=== PATIENT | female | born 1930 | race Caucasian/White ===

== ENCOUNTER 2018-12-07 12:46 | Emergency (ER) | payer OTHER ==
[~2018-12-07] VITALS: Ht 152.4 cm; Wt 45.4 kg
[2018-12-07 13:06] VITALS: BP 135/85
--- NOTE | 2018-12-07 13:10 | NUR ---
BIB GRANDDAUGHTER. PT AAO X4 C/O CANKER SORE THAT COMES AND GOES X 1 WEEK. PT STATES 10/10 PAIN. PT TOOK ADVIL LAST NIGHT WITH MILD RELIEF. PT DENIES FEVER, N/V. HOB UP. BED SIDE RAILS UP X1. ON LOW BED POSITION, LOCKED. ER MADE AWARE OF PT STATUS.
[2018-12-07] MEDS ORDERED: CLINDAMYCIN 600 MG/4 ML VIAL IM ONE (13:30)
--- NOTE | 2018-12-07 13:30 | NUR ---
DR DANG AT BEDSIDE FOR PT EVAL
--- NOTE | 2018-12-07 14:00 | NUR ---
IM MEDICATION GIVEN ORDERED. PT TOLERATED WELL.
--- NOTE | 2018-12-07 14:15 | NUR ---
PT ASLEEP. EASILY AROUSABLE BY NAME. FULL CLEAR SPEECH. NO ADVERSE REACTION TO MEDICATIONS. VSS. GRAND DAUGHTER AT BEDSIDE.
[2018-12-07 14:18] VITALS: BP 103/67
--- NOTE | 2018-12-07 14:18 | NUR ---
Patient discharged with v/s stable. Written and verbal after care instructions given and explained. Patient alert, oriented and verbalized understanding of instructions. Wheel Chair Assisted with by caregiver. All questions addressed prior to discharge. ID band removed. Patient advised to follow up with PMD. Rx of Flagyl, Kenalog 0.1% given. Patient educated on indication of medication including possible reaction and side effects. Opportunity to ask questions provided and answered.
== END 2018-12-07 14:18 | disposition home or self-care (01) ==
LOC: MED 12:46
DX: K12.0 Recurrent oral aphthae (principal)
CPT/HCPCS: 96372; 99283; J3490

== ENCOUNTER 2019-11-30 11:00 | Inpatient (IN) | payer OTHER, SELFPAY ==
[~2019-11-30] VITALS: Ht 149.9 cm; Wt 72.6 kg
--- NOTE | 2019-11-30 11:00 | NUR ---
PT WHEELCHAIRED TO ER BED 07
[2019-11-30] MEDS ORDERED: NACL 0.9% 500 ML IV SCH (11:01)
[2019-11-30 11:04] VITALS: BP 141/60
[2019-11-30] MEDS ORDERED: ONDANSETRON 4 MG/2 ML VIAL IVP ONE (11:05)
--- NOTE | 2019-11-30 11:10 | NUR ---
SEED COLLECTOR AT BEDSIDE
--- NOTE | 2019-11-30 11:13 | NUR ---
DR. TITUS EVALUATING PT AT BEDSIDE
[2019-11-30] MEDS ORDERED: MORPHINE SULFATE 2 MG/ML SYR IVP ONE (11:15)
[2019-11-30 11:34] LABS: PROTHROMBIN TIME 10.4 secs (10.8-13.4)
--- NOTE | 2019-11-30 11:34 | NUR ---
89 Y/O FEMALE BIB DAUGHTER WITH C/O VOMITING/ABD PAIN/ DIARRHEA SINCE EARLY THIS AM. PTS DAUGHTER REPORTS ABOUT 10 EPISODES OF EMESIS + DIARRHEA. PT HAS DEMENTIA, GCS 13. CAP REFILL <3. DENIES SOB/CP/COUGH/FEVER. ABD SOFT/NON DISTENDED. BOWEL SOUNDS NORMOACTIVE IN ALL QUADRANTS. LUNG SOUNDS CLEAR BILAT. BILAT LOWER PITTING EDEMA +3 WITH MESTICULAR LESIONS. SKIN IN TACT. PMH: DM2, HTN, PVD MEDS: INSULIN, PLAVIX, GABAPENTIN NKA
[2019-11-30 11:35] LABS: BILIRUBIN,URINE NEGATIVE (NEGATIVE); BLOOD, URINE 1+ (NEGATIVE); COLOR,URINE YELLOW (YELLOW); LEUKOCYTE ESTERASE ,URINE NEGATIVE (NEGATIVE); NITRITE, URINE NEGATIVE (NEGATIVE); PH,URINE 5.5 (5.0-9.0); UGLUCOSE NEGATIVE (NEGATIVE)
[2019-11-30 11:35] LABS: ALBUMIN 3.3 g/dL (3.4-5.0); ANION GAP 13.3 (8-16); ASPARTATE AMINOTRANSFERASE 18 U/L (15-37); CARBON DIOXIDE 26.1 mmol/L (21-32); CHLORIDE 107 mmol/L (98-107); CREATININE 1.3 mg/dL (0.6-1.3); GLUCOSE 120 mg/dL (74-106); POTASSIUM 4.4 mmol/L (3.5-5.1); SODIUM SERUM 142 mmol/L (136-145); TOTAL BILIRUBIN 0.5 mg/dL (0.0-1.0); UREA NITROGEN, BLOOD 31 mg/dL (7-18)
[2019-11-30 11:42] LABS: HEMATOCRIT 33.7 % (36-48); HEMOGLOBIN 11.2 g/dL (12.0-16.0); MEAN CORPUSCULAR HEMOGLOBIN 31 pg (27-31); MEAN CORPUSCULAR HGB CONC 33 g/dL (33-37); MEAN CORPUSCULAR VOLUME 93.9 fL (80-94); RED BLOOD CELL COUNT(AUTO) 3.59 MIL/uL (4.20-5.40); RED CELL DISTRIBUTION WIDTH 13.9 % (11.6-13.7); WHITE BLOOD COUNT (AUTO) 8.4 K/uL (4.8-10.8)
[2019-11-30 11:43] LABS: BASOPHILS # (AUTO) 0.1 K/uL (0.00-0.22); BASOPHILS % (AUTO) 0.7 % (0.0-2.0); EOSINOPHILS # (AUTO) 0.1 K/uL (0-0.4); EOSINOPHILS % (AUTO) 1.6 % (0.0-4.0); LYMPHOCYTES % (AUTO) 23.9 % (20.5-51.1); MONOCYTES # (AUTO) 0.7 K/uL (0.8-1.0); MONOCYTES % (AUTO) 8.6 % (1.7-9.3); NEUTROPHILS # (AUTO) 5.4 K/uL (1.8-7.7); NEUTROPHILS % (AUTO) 65.2 % (42.2-75.2); PLATELET COUNT (AUTO) 260 K/uL (140-450)
[2019-11-30] MEDS ORDERED: DIVA125E1 (11:47)
[2019-11-30] MEDS ORDERED: VOL25 PO (11:48)
[2019-11-30] MEDS ORDERED: QUET25TA PO (11:48)
[2019-11-30] MEDS ORDERED: GABA100C PO (11:49)
[2019-11-30 11:58] LABS: APPEARANCE,URINE CLEAR (CLEAR); RBC,URINE 0-5 /HPF (0-5); WBC,URINE 0-5 /HPF (0-5)
--- NOTE | 2019-11-30 12:38 | NUR ---
PT MOVED FROM BED 07 TO BED 10
--- NOTE | 2019-11-30 13:00 | NUR ---
PT RESTING IN BED, RESP EVEN AND UNLABORED. GRANDAUGHTER AT BEDSIDE. BED IN LOWEST POSITION
[2019-11-30] MEDS ORDERED: ACETAMINOPHEN 325 MG TAB PO PRN (13:10)
[2019-11-30] MEDS ORDERED: HYDROcodone/APAP 5/325 MG 1 TAB TAB PO PRN (13:10)
[2019-11-30] MEDS ORDERED: LORazepam 2 MG/ML VIAL IVP PRN (13:10)
[2019-11-30] MEDS ORDERED: MORPHINE SULFATE 4 MG/ML SYR IVP PRN (13:10)
[2019-11-30] MEDS ORDERED: AZITHROMYCIN 500 MG in DEXTROSE 5% 250 ML IV ONE (13:10)
[2019-11-30] MEDS ORDERED: ONDANSETRON 4 MG/2 ML VIAL IVP PRN (13:10)
[2019-11-30] MEDS ORDERED: cefTRIAXone 1,000 MG VIAL ONE (13:21)
--- NOTE | 2019-11-30 14:00 | NUR ---
CHANGED PTS DIAPER. VSS. RESP EVEN AND UNLABORED. ALL NEEDS MET AT THIS TIME
[2019-11-30 14:02] LABS: LACTATE DEHYDROGENASE 208 U/L (81-234)
[2019-11-30] MEDS ORDERED: AZITHROMYCIN 500 MG INJ VIAL IV ONE (14:11)
[2019-11-30 14:13] LABS: D-DIMER 638 ng/ml (0-400)
[2019-11-30 15:02] LABS: FIBRINOGEN 359 mg/dL (200-400)
[2019-11-30 15:03] LABS: RSV NEGATIVE (NEGATIVE)
--- NOTE | 2019-11-30 15:11 | NUR ---
Patient will be admitted to care of MELA. Admited to MED SURG. Will go to room 124. Belongings list completed. Report to SUKH SUTTON.
--- NOTE | 2019-11-30 15:35 | NUR ---
PT ARRIVED ON FLOOR VIA LAURIE, REPORT RECEIVED FROM CLOTH SPREADER AT BEDSIDE FOR CONTINUITY OF CARE. PATIENT SUDANESE SPEAKING, HX OF DEMENTIA. ON 2L O2 VIA NC. NO S/S OF DISTRESS OR SOB NOTED. PT DENIES PAIN.UPDATED BOARD. TN ON DROPLET PRECAUTION FOR R/O COVID. SAFETY PRECAUTIONS IN PLACE, CALL LIGHT WITHIN REACH, BED IN LOWEST POSITION LOCKED WITH ALARM ON, WILL CONTINUE TO MONITOR PATIENT.
[2019-11-30 15:45] VITALS: BP 136/49
--- NOTE | 2019-11-30 17:50 | NUR ---
PT ATTEMPTED TO GET OUT OF BED TO GO TO BATHROOM, PT WEAK AND UNSTEADY, NO BSC AVAILABLE ON FLOOR. INFORMED PATIENT OF BEDPAN. PT REFUSED. ATIVAN PRN GIVEN FOR ANXIETY. PAGED DR. PLAZA FOR ORDER FOR SOFT RESTRAINTS. DR. CUEVAS SILICA MIXER OPERATOR, CALLED BACK, ORDER GIVEN. PT PLACED ON BILATERAL SOFT WRIST RESTRAINTS. PT NOW BACK IN BED. WILL CONTINUE TO MONITOR PATIENT.
--- NOTE | 2019-11-30 18:40 | NUR ---
PT'S GRANDDAUGHTER ANJEL CALLED, UPDATED HER ON PT'S STATUS, SHE VERBALIZED UNDERSTANDING AND REQUESTS THAT RN CALL WHEN NEWS ABOUT SURGICAL CONSULT. WILL ENDORSE HER REQUEST TO DRY COLOR TESTER RN.
--- NOTE | 2019-11-30 19:15 | NUR ---
RECEIVED REPORT FROM DAY SHIFT NURSE. PATIENT IS ALERT, NOT ORIENTED. PATIENT IS CONFUSED. PATIENT ON ROOM AIR, RESPIRATIONS EVEN AND UNLABORED. AMBULATES WITH ASSISTANCE. PATIENT ON SALINE LOCK ON HER LEFT AC 20G. SKIN INTACT. ON SOFT RESTRAINTS. REVIEWED PLAN OF CARE TO PATIENT. SAFETY MEASURES IN PLACE. CALL LIGHT WITHIN REACH. WILL CONTINUE TO MONITOR PATIENT.
[2019-11-30] MEDS: QUEtiapine FUMARATE 25 MG TAB PO SCH (21:00)
--- NOTE | 2019-11-30 21:30 | NUR ---
PATIENT IS ASLEEP. NON ADMINISTERED SEROQUEL MEDICATION. RESPIRATIONS EVEN AND UNLABORED. SAFETY MEASURES IN PLACE. WILL CONTINUE TO MONITOR PATIENT.
--- NOTE | 2019-11-30 23:42 | NUR ---
PATIENT SLEEPING COMFORTABLY. NO SIGNS OF DISTRESS. PATIENT ON ROOM AIR. RESPIRATIONS EVEN AND UNLABORED. CALL LIGHT WITHIN REACH. WILL CONTINUE TO MONITOR PATIENT.
[2019-12-01] VITALS: BP 114/59
--- NOTE | 2019-12-01 02:00 | NUR ---
PATIENT IS AWAKE, EPISODES OF CONFUSION NOTED. REORIENTED PT. SAFETY MEASURES IN PLACE. WILL CONTINUE TO MONITOR PT.
--- NOTE | 2019-12-01 04:30 | NUR ---
PATIENT IS SLEEPING COMFORTABLY. RESPIRATIONS EVEN AND UNLABORED. WILL CONTINUE TO MONITOR PATIENT.
--- NOTE | 2019-12-01 06:10 | NUR ---
PATIENT WAS ABLE TO REMOVE HER RESTRAINTS BILATERAL AND WAS TRYING TO GET UP ON BED. PT CONFUSED. REORIENTED TO REALITY. PUT PATIENT BACK ON BED. PLACED RESTRAINTS AGAIN. SAFETY MEASURES IN PLACE. CALL LIGHT WITHIN REACH. WILL CONTINUE TO MONITOR PT.
[2019-12-01 06:15] LABS: BASOPHILS # (AUTO) 0.1 K/uL (0.00-0.22); BASOPHILS % (AUTO) 0.9 % (0.0-2.0); EOSINOPHILS # (AUTO) 0.1 K/uL (0-0.4); EOSINOPHILS % (AUTO) 1.7 % (0.0-4.0); HEMATOCRIT 32.5 % (36-48); HEMOGLOBIN 10.9 g/dL (12.0-16.0); LYMPHOCYTES # (AUTO) 2.1 K/uL (2.5-16.5); LYMPHOCYTES % (AUTO) 25.1 % (20.5-51.1); MEAN CORPUSCULAR HEMOGLOBIN 31 pg (27-31); MEAN CORPUSCULAR HGB CONC 34 g/dL (33-37); MEAN CORPUSCULAR VOLUME 93.6 fL (80-94); MONOCYTES % (AUTO) 11.7 % (1.7-9.3); NEUTROPHILS # (AUTO) 5.1 K/uL (1.8-7.7); NEUTROPHILS % (AUTO) 60.6 % (42.2-75.2); PLATELET COUNT (AUTO) 241 K/uL (140-450); RED BLOOD CELL COUNT(AUTO) 3.47 MIL/uL (4.20-5.40); RED CELL DISTRIBUTION WIDTH 13.4 % (11.6-13.7); WHITE BLOOD COUNT (AUTO) 8.5 K/uL (4.8-10.8)
[2019-12-01 06:34] LABS: ALBUMIN 2.9 g/dL (3.4-5.0); ANION GAP 14.3 (8-16); ASPARTATE AMINOTRANSFERASE 15 U/L (15-37); CARBON DIOXIDE 25.8 mmol/L (21-32); CHLORIDE 108 mmol/L (98-107); CREATININE 1.2 mg/dL (0.6-1.3); GLUCOSE 89 mg/dL (74-106); POTASSIUM 4.1 mmol/L (3.5-5.1); SODIUM SERUM 144 mmol/L (136-145); TOTAL BILIRUBIN 0.4 mg/dL (0.0-1.0); UREA NITROGEN, BLOOD 24 mg/dL (7-18)
--- NOTE | 2019-12-01 07:20 | NUR ---
PATIENT IS STABLE. ENDORSED PATIENT TO DAY SHIFT NURSE FOR CONTINUITY OF CARE.
--- NOTE | 2019-12-01 07:22 | NUR ---
RECEIVED REPORT FROM BAG MACHINE ADJUSTER NURSE. PATIENT IN STABLE CONDITION. RESPIRATIONS EVEN AND UNLABORED. NO DISTRESS NOTED. SAFETY MEASURES IN PLACE, BED IN LOWEST POSITION, CALL LIGHT WITHIN IN REACH. WILL CONTINUE TO MONITOR.
[2019-12-01 08:00] VITALS: BP 135/48
--- NOTE | 2019-12-01 08:30 | NUR ---
PT REMOVED WRIST RESTRAINTS AND IS SITTING BEDSIDE ATTEMPTING TO GET UP. NURSE INTERVENED AND GOT PATIENT BACK IN BED AND REPLACED SIFT WRIST RESTRAINTS. SAFETY MEASURES IN PLACE, BED IN LOWEST POSITION, CALL LIGHT WITHIN REACH.
[2019-12-01] MEDS: DIVALPROEX SPRINKLES 125 MG CAPDR PO SCH (08:43)
[2019-12-01] MEDS: GABAPENTIN 100 MG CAP PO SCH (08:44)
[2019-12-01] MEDS: ENOXAPARIN 30 MG/0.3 ML SYR SUBQ SCH (08:44)
[2019-12-01] MEDS ORDERED: ENOXAPARIN 40 MG/0.4 ML SYR SUBQ SCH (09:00)
--- NOTE | 2019-12-01 09:43 | NUR ---
PATIENT HAS BEEN SCREENED AND CATEGORIZED MODERATE NUTRITION RISK. PATIENT WILL BE SEEN WITHIN 3-5 DAYS OF ADMISSION. 12/02/19 12/04/[address]
--- NOTE | 2019-12-01 10:15 | NUR ---
PATIENT RESTING QUIETLY IN BED. NO SIGNS OF DISTRESS NOTED. WILL CONTINUE TO MONITOR
--- NOTE | 2019-12-01 11:52 | NUR ---
REGISTRATION SCHEDULING SPECIALIST NOTE: Basic Screen: Yes High Risk DC Screen [place]: ANJEL SULTANA Home Relationship: GRANDDAUGHTER Pre-Admission Living Arrangements: Lives with Other Prior ADL Needs Assistance Current Home Health Name/Tel: N/A Current DME/02 Name/Tel: WHEELCHAIR, WALKER Current Hospice Name/Tel: N/A Current Dialysis Name/Tel: N/A Healthcare Decision Maker: Next of Kin Advance Directive No Physician Orders for Life Sustaining Treatment Form No Patient/Family Have Educational Needs No Discipline: Case Mgt/Social Svcs Tentative Discharge Plan/Destination: No Needs Identified Will require assistance post discharge: No Referred to Environmental Construction Engineer: No Tentative Discharge Plan Summary: PATIENT IS AN 89-YEAR-OLD FEMALE ADMITTED FOR PERIUMBILICAL HERNIA. PATIENT HAS PMHX OF DEMENTIA AND DIABETES. PATIENT WAS ADMITTED FROM HOME WHERE SHE LIVES WITH HER SON. SW CONTACTED GRANDDAUGHTER ANJEL SULTANA [phone] TO VERIFY DEMOGRAPHICS. PER ANJEL, PATIENT RECEIVES IHSS AND HAS A CAREGIVER COMING IN 6.5 HOURS A DAY ON WEEKDAYS. ANJEL STATED THAT PATIENT REQUIRES ASSISTANCE WITH ALL ADLS AND THAT DIFFERENT FAMILY MEMBERS TAKE TURNS ASSISTING PATIENT. SW ASSESSED FOR RISK FACTORS BUT NONE WERE APPARENT. ANJEL STATED THAT ALL OF PATIENT'S NEEDS WERE BEING MET. TENTATIVE DISCHARGE PLAN IS FOR PATIENT TO RETURN HOME. NO FURTHER NEEDS IDENTIFIED. Signature: IRAIDA WRIGHT Date: Dec 01, 2019 Time: 11:51
--- NOTE | 2019-12-01 12:14 | NUR ---
DC PLANNIN YRS OLD MALE PATIENT WAS ADMITTED FROM HOME WITH A DX OF PERIUMBILICAL HERNIA. PT HAS A HX OF DM, HF,CAD, AND DEMENTIA. CT ABD/PELVIS SHOWED CHOLELITHIASIS , FAT CONTAINING PERIUMBILICAL HERNIA . STARTED WITH IV ABX CEFTRIAXONE, AND AZITHROMYCIN . CONSULTED WITH SURGEON WITH DR CASTLE EVALUATION FOR HERNIA. DC PLAN PER MD RECOMMENDATION. CM TO FOLLOW. Addendum: 12/02/19 at 1123 by Morelia Victoria CM DC PLANNING: SEEN BY DR NICHOLS SURGEON DISCUSSED THE CASE WITH THE FAMILY NOT RECOMMENDING SURGERY AT THIS TIME. VIRAL GASTROENTERITIS RESOLVED, EATING AND PASSING BOWEL MOVEMENTS TOLERATED WELL PT IS STABLE FOR DISCHARGE AND FOLLOW UP WITH PCP. PCP APPOINTMENT WILL BE ARRANGE WITH DC COMMAND AND CONTROL. CM TO FOLLOW Addendum: 12/02/19 at 1140 by Yvonne Barber CM SCHEDULED PATIENT APPT WITH PCP [phone]. PATIENTS APPOINTMENT IS ON Sunday AT 10:[address] Reyes AD[address]ESS [address] [place] [id number]. GAVE APPOINTMENT REMINDER TO NURSE HEATHER MCNAIR. THE PATIENT WAS ASLEEP, HEATHER SAID SHE WILL GIVE APPOINTMENT REMINDER TO NIECE WHEN SHE PICKS UP THE PATIENT.
--- NOTE | 2019-12-01 12:30 | NUR ---
PATIENT IN BED, WRIST RESTRAINTS ON, NO SIGNS OF DISTRESS. WILL CONTINUE TO MONITOR.
--- NOTE | 2019-12-01 14:45 | NUR ---
PATIENTS GRAND DAUGHTER ANJEL CALLED TO GET UPDATES ON PT. INQUIRING ABOUT DISCHARGE OR SURGERY. REQUESTED A FOLLOW UP CALL WHEN MORE INFORMATION IS KNOWN.
[2019-12-01 16:00] VITALS: BP 132/50
--- NOTE | 2019-12-01 17:30 | NUR ---
RESTRAINTS ORDER RENEWED. PT CONTINUES TO ATTEMPT TO REMOVE RESTRAINTS AND GET OUT OF BED. ALSO IS PULLING AT IV SITE AND TUBING. FREQUENT ROUNDS NEEDED. WILL CONTINUE TO MONITOR.
[2019-12-01] MEDS: FUROSEMIDE 40 MG TAB PO SCH (17:40)
--- NOTE | 2019-12-01 19:05 | NUR ---
Patient's Plan of Care was discussed and reviewed with AKASH
--- NOTE | 2019-12-01 19:15 | NUR ---
REPORT GIVEN TO OYSTER BUYER NURSE FOR CONTINUITY OF CARE. PT IN STABLE CONDITION.
--- NOTE | 2019-12-01 19:16 | NUR ---
RECD. RESTING IN BED, AWAKE, A/OX1, CONFUSED. IV SALINE LOCK AT THE RIGHT AC G22, PATENT AND INTACT. ON BILATERAL SOFT WRIST RESTRAINTS, TRYING TO PULL OUT IV LINE. SAFETY MEASURES ENFORCED. BED IN THE LOWEST POSITION. BED ON ALARM. REORIENTED TO HOSPITAL SETTING. PLAN OF CARE FOR THE SHIFT DISCUSSED. NEEDS REINFORCEMENT. NO APPEARANCE OF PAIN NOTED, FLACC -0.
[2019-12-01] MEDS: QUEtiapine FUMARATE 25 MG TAB PO SCH (21:58)
--- NOTE | 2019-12-01 21:58 | NUR ---
DUE PO MEDICATION FOR THE NIGHT GIVEN WITH APPLE SAUCE, TRIED TO SPIT IT OUT BUT ABLE TO TAKE IT AFTER FEW MINUTES.
[2019-12-02] VITALS: BP 149/66
--- NOTE | 2019-12-02 | NUR ---
STILL AWAKE, CONSTANTLY PULLING OUT HER RESTRAINTS AND IV LINE.
--- NOTE | 2019-12-02 03:00 | NUR ---
SLEEP FOR 15 MINUTES AND THEN WOKE UP AND STARTED PULLING AGAIN HER RESTRAINTS ZAND IV LINE. REORIENTED TO HOSPITAL SETTING.
--- NOTE | 2019-12-02 06:00 | NUR ---
SAFETY MAINTAINED. NO INJURY OR FALL NOTED.
--- NOTE | 2019-12-02 07:01 | NUR ---
SLEEPING COMFORTABLY IN BED. CONDITION REMAIN STABLE. WILL ENDORSE TO AM SHIFT NURSE FOR CONTINUITY OF CARE.
--- NOTE | 2019-12-02 07:05 | NUR ---
RECEIVED BEDSIDE REPORT FROM FLATWORK SUPERVISOR NURSE ISAIAH FOR CONTINUITY OF CARE. PT IS AWAKE AND RESTING ON BED AT THIS TIME. PT IS AAOX1, TO NAME. RESPIRATION EVEN AND UNLABORED ON RA. FLACC 0. NO SIGNS OF DISTRESS NOTED. IV ON R AC 22G, CLEAN AND INTACT, SALINE LOCK AT THIS TIME. SCABS AND REDNESS ON L LOWER LEG NOTED. SOFT WRIST RESTRAINTS ON BILATERALLY. PT IS INCONTINENT AND BEDREST. SAFETY MEASURES IN PLACE. FALL RISK PRECAUTION IN PLACE. BED LOCK. BED ALARM ACTIVATED. BED IN LOW POSITION AND CALL LIGHT WITHIN REACH.
[2019-12-02 08:00] VITALS: BP 134/59
[2019-12-02] MEDS ORDERED: AZITHROMYCIN 250 MG TAB PO SCH (09:00)
[2019-12-02] MEDS: ENOXAPARIN 30 MG/0.3 ML SYR SUBQ SCH (09:51)
[2019-12-02] MEDS: DIVALPROEX SPRINKLES 125 MG CAPDR PO SCH (09:53)
[2019-12-02] MEDS: FUROSEMIDE 40 MG TAB PO SCH (09:53)
[2019-12-02] MEDS: GABAPENTIN 100 MG CAP PO SCH (09:53)
--- NOTE | 2019-12-02 09:58 | NUR ---
ADMINISTERED MEDS WITH PUDDING, MEDS EDUCATION PROVIDED AND REINFORCEMENT NEEDED, PT SWALLOWED 2/3 OF MEDS ON SPOON AND STARTED TO SPITTING, PULLING CLOTHES AND YELLING IN PASHTO. WITH ASSIST FROM GOLD LETTERER, POSITIONED PT COMFORTABLY ON BED. ASSESSED RESTRAINTS, NO SIGNS OF INJURY. WILL CALL ANJEL THE GRAND-DAUGHTER FOR DC HOME. SAFETY MEASURES IN PLACE.
--- NOTE | 2019-12-02 10:15 | NUR ---
CALLED ANJEL AND NOTIFIED ANJEL FOR DC. ANJEL WAS AWARE AND SAID, " I WILL STOP BY HER HOUSE FOR CLOTHES AND BE THERE AROUND 12PM."
--- NOTE | 2019-12-02 11:36 | NUR ---
PT IS TALKING TO HERSELF IN KHMER ON BED AND MOVING AROUND. NO SIGNS OF ACUTE DISTRESS NOTED. SAFETY MEASURES IN PLACE. BED ALARM ACTIVATED.
--- NOTE | 2019-12-02 12:35 | NUR ---
ANJEL ARRIVES AT FRONT LOBBY. PROVIDED DISCHARGE INSTRUCTION. EDUCATED ANJEL TO FOLLOW UP WITH MD, MEDICATION REGIMEN, SIDE EFFECTS, DIET, AND SAFETY. ANSWERED ALL ANJEL'S QUESTIONS AND ANJEL VERBALIZED UNDERSTANDING. PROVIDED HARD COPY OF DISCHARGE PACKET TO ANJEL AND ALL PT'S BELONGINGS.
--- NOTE | 2019-12-02 13:15 | NUR ---
CHANGED PT INTO HER OWN CLOTHES. REMOVED IV CANNULA, INTACT, NO BLEEDING ON IV SITE. REMOVED ALL ARM BANDS. ESCORTED PT TO THE FRONT LOBBY AND ASSISTED TO GO IN CAR. PT IS GOING TO DC HOME AT THIS TIME ACCOMPANIED WITH ANJEL. PT IS IN STABLE CONDITION.
--- NOTE | 2019-12-02 14:49 | NUR ---
PROVIDED DISCHARGE INSTRUCTION. EDUCATED PT TO FOLLOW UP WITH MD, MEDICATION REGIMEN, SIDE EFFECTS, DIET, AND SAFETY. ANSWERED ALL PT'S QUESTIONS AND PT VERBALIZED UNDERSTANDING. PT IS UP TO DATE WITH FLU AND GOT PNA 2 YEARS AGO. PROVIDED HARD COPY OF DISCHARGE PACKET TO PT. PT WAS AWARE THAT PRESCRIPTION WAS SEND TO HIS PREFERRED PHARMACY [facility]. IV REMOVED, CANNULA INTACT, AND NO BLEEDING. REMOVED ALL ARM BANDS. PT TOOK ALL HIS BELONGINGS. AWAITING FOR TAXI TO ARRIVE FOR DC.
--- NOTE | 2019-12-04 07:49 | NUR ---
LATE ENTRY 1511- ROCEPHIN IVPB DISCONTINUED AT 1511. AZITHROMYCIN IV DISCONTINUED AT 1511.
== END 2019-12-02 13:18 | disposition home or self-care (01) | DRG 392 ==
LOC: MED 11:00 → EEVIPCON 11:00 → MTU 14:10
PROVIDERS: ADMIT Internal Medicine Pulmonary Disease; ATTEND Internal Medicine Pulmonary Disease
DX: A08.4 Viral intestinal infection, unspecified (principal); J81.1 Chronic pulmonary edema; K42.9 Umbilical hernia without obstruction or gangrene; I50.9 Heart failure, unspecified; E11.9 Type 2 diabetes mellitus without complications; F03.90 Unspecified dementia, unspecified severity, without behavioral disturbance, psychotic disturbance, mood disturbance, and anxiety; I25.10 Atherosclerotic heart disease of native coronary artery without angina pectoris; Z20.828 Contact with and (suspected) exposure to other viral communicable diseases
CPT/HCPCS: 36415; 71045; 80053; 81001; 82550; 82728; 83605; 83615; 83880; 84484; 85025; 85379; 85384; 85610; 85730; 86140; 87040; 87081; 87086; 87420; 87804; 93005; 96365; 96368; 96375; 99291; C1758; J0456; J0696; J1650; J2060; J2270; J2405; J7030; J7060; Q0092; U0003-CS

== ENCOUNTER 2020-01-04 15:37 | Emergency (ER) | payer OTHER, SELFPAY ==
[~2020-01-04] VITALS: Ht 137.2 cm; Wt 61.2 kg
[~2020-01-04 15:37] MED LIST: DIVA125E1; GABA100C PO; QUET25TA PO; VOL25 PO
[2020-01-04 15:54] VITALS: BP 130/58
--- NOTE | 2020-01-04 16:00 | NUR ---
89 Y/O F C/C DIARRHEA X 2 WEEKS. PER GRANDAUGHTER, ON/OFF DIARRHEA, WITH MORE FREQUENT BROWN LIQUID EPISODES STARTING TODAY AT NOON, PER FAMILY >5 EPISODES. LAST ORAL INTAKE IN THE AM BREAKFAST. FAMILY DENIES PT BEING AROUND POSITIVE COVID FAMILY/PEOPLE. PT PRESENTS CALM. A/OX1. NKA. HX HTN,PVD,DEMENTIA,DM. NO VOMITTING/NAUSEA. SIDE RAIL X1. FAMILY AT BEDSIDE.
--- NOTE | 2020-01-04 16:43 | NUR ---
COVID / FLU / RSV SWAB OBTAINED AND GIVEN TO LAB
[2020-01-04 16:51] LABS: BASOPHILS % (AUTO) 0.7 % (0.0-2.0); EOSINOPHILS # (AUTO) 0.2 K/uL (0-0.4); EOSINOPHILS % (AUTO) 2.2 % (0.0-4.0); HEMATOCRIT 35.9 % (36-48); HEMOGLOBIN 11.8 g/dL (12.0-16.0); LYMPHOCYTES % (AUTO) 27.5 % (20.5-51.1); MEAN CORPUSCULAR HEMOGLOBIN 31 pg (27-31); MEAN CORPUSCULAR HGB CONC 33 g/dL (33-37); MEAN CORPUSCULAR VOLUME 94.2 fL (80-94); MONOCYTES # (AUTO) 0.7 K/uL (0.8-1.0); MONOCYTES % (AUTO) 9.6 % (1.7-9.3); NEUTROPHILS # (AUTO) 4.3 K/uL (1.8-7.7); PLATELET COUNT (AUTO) 258 K/uL (140-450); RED BLOOD CELL COUNT(AUTO) 3.82 MIL/uL (4.20-5.40); RED CELL DISTRIBUTION WIDTH 13.9 % (11.6-13.7); WHITE BLOOD COUNT (AUTO) 7.2 K/uL (4.8-10.8)
--- NOTE | 2020-01-04 16:51 | NUR ---
Patient taken to CT via gurney.
[2020-01-04] MEDS ORDERED: APIX5TAB PO (16:56)
[2020-01-04 16:57] LABS: C-REACTIVE PROTEIN QUANT 2.3 mg/dL (0.0-0.9)
[2020-01-04 17:04] LABS: PROTHROMBIN TIME 10.3 secs (10.8-13.4)
--- NOTE | 2020-01-04 17:04 | NUR ---
Patient returned from CT scan. RN re-evaluating patient at bedside.
[2020-01-04 17:06] LABS: ALBUMIN 3.3 g/dL (3.4-5.0); ANION GAP 13.9 (8-16); ASPARTATE AMINOTRANSFERASE 16 U/L (15-37); CARBON DIOXIDE 24.9 mmol/L (21-32); CHLORIDE 108 mmol/L (98-107); CREATININE 1.5 mg/dL (0.6-1.3); GLUCOSE 111 mg/dL (74-106); POTASSIUM 3.8 mmol/L (3.5-5.1); SODIUM SERUM 143 mmol/L (136-145); TOTAL BILIRUBIN 0.4 mg/dL (0.0-1.0); UREA NITROGEN, BLOOD 33 mg/dL (7-18)
[2020-01-04 17:20] LABS: RSV NEGATIVE (NEGATIVE)
[2020-01-04] MEDS ORDERED: NACL 0.9% 500 ML IV ONE (17:20)
--- NOTE | 2020-01-04 17:39 | NUR ---
PT RESTING IN BED, SIDE RAIL X2. FAMILY AT BEDSIDE.
[2020-01-04 17:53] LABS: LACTATE DEHYDROGENASE 216 U/L (81-234)
[2020-01-04 17:54] VITALS: BP 140/52
--- NOTE | 2020-01-04 17:55 | NUR ---
Patient discharged with v/s stable. Written and verbal after care instructions given and explained. Patient alert, oriented and verbalized understanding of instructions. Wheel Chair Assisted with by caregiver. All questions addressed prior to discharge. ID band removed. Patient advised to follow up with PMD. Rx of MOTRIN given. Patient educated on indication of medication including possible reaction and side effects. Opportunity to ask questions provided and answered.
== END 2020-01-04 17:55 | disposition home or self-care (01) ==
LOC: MED 15:37 → EEVIPCON 15:37 → MED 17:55
DX: K57.90 Diverticulosis of intestine, part unspecified, without perforation or abscess without bleeding (principal); K65.4 Sclerosing mesenteritis; F03.90 Unspecified dementia, unspecified severity, without behavioral disturbance, psychotic disturbance, mood disturbance, and anxiety; Z79.899 Other long term (current) drug therapy; Z20.828 Contact with and (suspected) exposure to other viral communicable diseases
CPT/HCPCS: 36415; 36600; 71045; 74176; 80053; 82550; 82728; 82803; 83605; 83615; 83880; 84484; 85025; 85379; 85384; 85610; 85730; 86140; 87040; 87420; 87804; 93005; 99285; J7030; Q0092; U0003

== ENCOUNTER 2020-02-13 11:39 | Emergency (ER) | payer OTHER, SELFPAY ==
[~2020-02-13] VITALS: Ht 154.9 cm; Wt 65.8 kg
[~2020-02-13 11:39] MED LIST changes: +APIX5TAB PO; -DIVA125E1; -GABA100C PO; -QUET25TA PO; -VOL25 PO
[2020-02-13 11:42] VITALS: BP 150/44
[2020-02-13 12:29] LABS: BASOPHILS % (AUTO) 0.4 % (0.0-2.0); EOSINOPHILS # (AUTO) 0.3 K/uL (0-0.4); EOSINOPHILS % (AUTO) 3.5 % (0.0-4.0); HEMATOCRIT 32.4 % (36-48); HEMOGLOBIN 10.7 g/dL (12.0-16.0); LYMPHOCYTES # (AUTO) 2.3 K/uL (2.5-16.5); LYMPHOCYTES % (AUTO) 28.3 % (20.5-51.1); MEAN CORPUSCULAR HEMOGLOBIN 32 pg (27-31); MEAN CORPUSCULAR HGB CONC 33 g/dL (33-37); MEAN CORPUSCULAR VOLUME 95.5 fL (80-94); MONOCYTES % (AUTO) 12.4 % (1.7-9.3); NEUTROPHILS # (AUTO) 4.5 K/uL (1.8-7.7); NEUTROPHILS % (AUTO) 55.4 % (42.2-75.2); PLATELET COUNT (AUTO) 205 K/uL (140-450); RED BLOOD CELL COUNT(AUTO) 3.39 MIL/uL (4.20-5.40); RED CELL DISTRIBUTION WIDTH 14.7 % (11.6-13.7); WHITE BLOOD COUNT (AUTO) 8.2 K/uL (4.8-10.8)
[2020-02-13 12:51] LABS: PROTHROMBIN TIME 10.3 secs (10.8-13.4)
[2020-02-13 12:54] LABS: ANION GAP 13.5 (8-16); ASPARTATE AMINOTRANSFERASE 17 U/L (15-37); CARBON DIOXIDE 24.9 mmol/L (21-32); CHLORIDE 112 mmol/L (98-107); CREATININE 1.2 mg/dL (0.6-1.3); GLUCOSE 108 mg/dL (74-106); POTASSIUM 4.4 mmol/L (3.5-5.1); SODIUM SERUM 146 mmol/L (136-145); TOTAL BILIRUBIN 0.4 mg/dL (0.0-1.0); UREA NITROGEN, BLOOD 29 mg/dL (7-18)
[2020-02-13 17:04] VITALS: BP 138/56
[2020-02-13 20:32] LABS: APPEARANCE,URINE CLEAR (CLEAR); BILIRUBIN,URINE NEGATIVE (NEGATIVE); BLOOD, URINE NEGATIVE (NEGATIVE); COLOR,URINE YELLOW (YELLOW); LEUKOCYTE ESTERASE ,URINE NEGATIVE (NEGATIVE); NITRITE, URINE NEGATIVE (NEGATIVE); PH,URINE 5.5 (5.0-9.0); UGLUCOSE NEGATIVE (NEGATIVE)
== END 2020-02-13 17:00 | disposition home or self-care (01) ==
LOC: MED 11:39
DX: B34.9 Viral infection, unspecified (principal); R42 Dizziness and giddiness; M13.862 Other specified arthritis, left knee; Z20.828 Contact with and (suspected) exposure to other viral communicable diseases
CPT/HCPCS: 36415; 71045; 73562; 80053; 81003; 83605; 83880; 84484; 85025; 85610; 85730; 87040; 93005; 99285; C1758; Q0092; U0003

== ENCOUNTER 2020-02-18 23:30 | Emergency (ER) | payer OTHER, SELFPAY ==
[~2020-02-18] VITALS: Ht 154.9 cm; Wt 63.5 kg
--- NOTE | 2020-02-18 23:34 | NUR ---
BIBA TO ER BED 5
[2020-02-18 23:35] VITALS: BP 169/46
--- NOTE | 2020-02-18 23:55 | NUR ---
MOVED TO ER BED 3
[2020-02-19] MEDS: ACETAMINOPHEN EXTRA STRENGTH 500 MG TAB PO ONE (00:51)
--- NOTE | 2020-02-19 00:55 | NUR ---
89 Y/O F BIBA C/O RT LEG PAIN X3 DAYS. PAIN RADIATES FROM TOP OF R KNEE TO TOP OF R FOOT. PT UNABLE TO VERBAL PAIN SCALE. MED HX: DM2, HTN, BASELINE CONFUSION RX UNOBTAINABLE NKA
--- NOTE | 2020-02-19 01:27 | NUR ---
ATTEMPTED TO CONTACT FAMILY BUT NO ANSWER. WAS ABLE TO TALK TO SOMEONE BUT UNABLE TO PICK PT UP BECAUSE HE "DOESN'T HAVE A CAR."
--- NOTE | 2020-02-19 01:28 | NUR ---
SPOKE TO SECOND FACING BASTER REGARDING TAXI VOUCHER, PER HOUSE SUP, UNABLE TO GIVE TAXI VOUCHER BECAUSE PT IS CONFUSED. PER HOUSE SUP, PT WILL NEED TO STAY IN ED UNTIL SOMEONE CAN PICK HER UP. CHARGE NURSE NOTIFIED.
--- NOTE | 2020-02-19 01:55 | NUR ---
ATTEMPTED TO CALL PT FAMILY TO CLARIFY PT'S ADDRESS, NO ANSWER.
[2020-02-19 03:57] VITALS: BP 169/46
--- NOTE | 2020-02-19 03:57 | NUR ---
Patient discharged with v/s stable. Written and verbal after care instructions given and explained. Patient alert, oriented and verbalized understanding of instructions. Wheel Chair Assisted with to car. All questions addressed prior to discharge. ID band removed. Patient advised to follow up with PMD. Rx of NAPROXEN given. Patient educated on indication of medication including possible reaction and side effects. Opportunity to ask questions provided and answered.
== END 2020-02-19 03:55 | disposition home or self-care (01) ==
LOC: MED 23:30
DX: M79.604 Pain in right leg (principal); E11.9 Type 2 diabetes mellitus without complications; F03.90 Unspecified dementia, unspecified severity, without behavioral disturbance, psychotic disturbance, mood disturbance, and anxiety; I10 Essential (primary) hypertension; Z79.899 Other long term (current) drug therapy
CPT/HCPCS: 93970; 99284; Q0092

== ENCOUNTER 2020-06-11 | Inpatient (IN) | payer OTHER, SELFPAY ==
[~2020-06-11] VITALS: Ht 165.1 cm; Wt 49.9 kg
[2020-06-11 00:29] VITALS: BP 134/99
--- NOTE | 2020-06-11 00:33 | NUR ---
PATIENT PRESENTS TO ED WITH ABD PAIN X2D. DENIES N/V/D; SKIN IS PINK/WARM/DRY; AAOX4 WITH EVEN AND STEADY GAIT; LUNGS CLEAR BL; HR EVEN AND REGULAR; PT DENIES ANY FEVER, CP, SOB, OR COUGH AT THIS TIME; PATIENT STATES PAIN OF 0/10 AT THIS TIME; VSS; PATIENT POSITIONED FOR COMFORT; HOB ELEVATED; BEDRAILS UP X2; BED DOWN. ER MD MADE AWARE OF PT STATUS.
[2020-06-11] MEDS ORDERED: NACL 0.9% 1,000 ML IV ONE ×2 (01:25→03:50)
[2020-06-11] MEDS ORDERED: ONDANSETRON 4 MG/2 ML VIAL IVP ONE (01:25)
[2020-06-11] MEDS ORDERED: MORPHINE SULFATE 2 MG/ML SYR IVP ONE (01:25)
[2020-06-11 01:40] LABS: BASOPHILS # (AUTO) 0.1 K/uL (0.00-0.22); BASOPHILS % (AUTO) 0.4 % (0.0-2.0); EOSINOPHILS # (AUTO) 0.1 K/uL (0-0.4); EOSINOPHILS % (AUTO) 0.9 % (0.0-4.0); HEMATOCRIT 40.2 % (36-48); HEMOGLOBIN 13.3 g/dL (12.0-16.0); LYMPHOCYTES # (AUTO) 3.3 K/uL (2.5-16.5); LYMPHOCYTES % (AUTO) 21.3 % (20.5-51.1); MEAN CORPUSCULAR HEMOGLOBIN 31 pg (27-31); MEAN CORPUSCULAR HGB CONC 33 g/dL (33-37); MEAN CORPUSCULAR VOLUME 94.6 fL (80-94); MONOCYTES % (AUTO) 6.3 % (1.7-9.3); NEUTROPHILS # (AUTO) 11.1 K/uL (1.8-7.7); NEUTROPHILS % (AUTO) 71.1 % (42.2-75.2); PLATELET COUNT (AUTO) 244 K/uL (140-450); RED BLOOD CELL COUNT(AUTO) 4.25 MIL/uL (4.20-5.40); WHITE BLOOD COUNT (AUTO) 15.6 K/uL (4.8-10.8)
[2020-06-11 02:00] LABS: ALBUMIN 3.4 g/dL (3.4-5.0); ANION GAP 11.8 (8-16); ASPARTATE AMINOTRANSFERASE 39 U/L (15-37); CARBON DIOXIDE 26.1 mmol/L (21-32); CHLORIDE 107 mmol/L (98-107); CREATININE 1.3 mg/dL (0.6-1.3); GLUCOSE 120 mg/dL (74-106); LIPASE 61 U/L (73-393); POTASSIUM 3.9 mmol/L (3.5-5.1); SODIUM SERUM 141 mmol/L (136-145); TOTAL BILIRUBIN 1.2 mg/dL (0.0-1.0); UREA NITROGEN, BLOOD 23 mg/dL (7-18)
--- NOTE | 2020-06-11 02:14 | NUR ---
PT TAKEN TO CT VIA LAURIE
--- NOTE | 2020-06-11 02:26 | NUR ---
PT PULLED OUT IV IN CT, NEW IV LINE PLACE IN RIGHT ARM
--- NOTE | 2020-06-11 03:45 | NUR ---
PT DOES NOT APPEAR TO BE IN DISTRESS AT THIS TIME. PT IS EASILY AROUSEABLE TO VOICE. SIDE RAILS UP AND BED IN LOWEST POSITION FOR SAFETY.
[2020-06-11] MEDS ORDERED: PIPERACILLIN/TAZOBACTAM 3.375 GM in DEXTROSE 5% 50 ML IV ONE (03:50)
[2020-06-11] MEDS ORDERED: NACL 0.9% 500 ML IV ONE (03:50)
[2020-06-11] MEDS ORDERED: PIPERACILLIN/TAZOBACTAM 3.375 GM VIAL IV ONE (03:58)
[2020-06-11] MEDS ORDERED: MORPHINE SULFATE 2 MG/ML SYR IVP PRN (04:00)
[2020-06-11] MEDS ORDERED: ONDANSETRON 4 MG/2 ML VIAL IVP PRN (04:00)
--- NOTE | 2020-06-11 05:27 | NUR ---
AMALIA VICENTE SWAB DONE AND WALKED TO LAB
[2020-06-11] MEDS: NACL 0.9% 1,000 ML IV SCH ×2 (06:01→16:47)
[2020-06-11] MEDS ORDERED: ASPI81CT51 PO (07:15)
[2020-06-11] MEDS ORDERED: NITR0.4T2 SL (07:15)
[2020-06-11] MEDS ORDERED: GABA300C PO (07:15)
--- NOTE | 2020-06-11 07:30 | NUR ---
Report recieved from LESLEY Amaya. transfer of care at this time.
--- NOTE | 2020-06-11 08:18 | NUR ---
Spoke to patients sonJoel. Call for updates-- [phone]
--- NOTE | 2020-06-11 08:45 | NUR ---
PATIENT HAS BEEN SCREENED AND CATEGORIZED HIGH NUTRITION RISK. PATIENT WILL BE SEEN WITHIN 1-2 DAYS OF ADMISSION. 06/11/20-06/12/[address]
[2020-06-11] MEDS ORDERED: ENOXAPARIN 40 MG/0.4 ML SYR SUBQ SCH (09:00)
[2020-06-11] MEDS: LORazepam 2 MG/ML VIAL IVP PRN ×2 (09:09→17:43)
[2020-06-11] MEDS: ENOXAPARIN 30 MG/0.3 ML SYR SUBQ SCH (09:13)
--- NOTE | 2020-06-11 09:15 | NUR ---
Pt sleeping, equal rise and fall of chest. VSS, will continue to monitor.
--- NOTE | 2020-06-11 10:34 | NUR ---
Spoke with Joel Castellano for pt updates.
--- NOTE | 2020-06-11 11:49 | NUR ---
Pt eyes closed, visible rise and fall of chest, VSS, will continue to monitor.
--- NOTE | 2020-06-11 11:56 | NUR ---
SOCIAL WORK NOTE: Patient's Orientation Unable To Assess Information Provided By ANJEL GOLDSMITHA RD - GRANDDAUGHTER Comments SW WAS UNABLE TO MEET PATIENT AT BEDSIDE DUE TO MEDICAL CONDITION. SW COMPLETED ASSESSMENT WITH PATIENT'S GRANDDAUGHTER. Team Foreman, Realtionship and Phone Number ANJEL ROB [phone] Healthcare Power of Parking Cashier No Does Patient Have a POLST No Identifying Problems No Social Work Triggers Is A Social Work Consult Needed No Mandate Report Filed No Explanation Of Identifying Problems PATIENT IS A 89-YEAR-OLD FEMALE ADMITTED FOR CHOLECYSTITIS. PATIENT HAS PMHX OF DEMENTIA. Admitted From Home Hospice Provider UNKNOWN Pre-Admission Level Of Functioning Status Total Care Level Of Functioning Comment PER GRANDDAUGHTER, PATIENT REQUIRES TOTAL ASSISTANCE WITH ADLS THAT FAMILY ASSISTS WITH. Prior Resources/Services Used In Last 12 Months No Prior Resources Used Prior DME Wheelchair Dialysis Comments N/A Living Situation Apartment Lives With Family Other Living Situation/Comment PER GRANDDAUGHTER, PATIENT LIVES WITH SON MARE STOCKTON [phone]. Patient Had Caregiver No Home Support CG/Fam Able To Meet Need Financial Issues No Known Financial Issue Referral To The Financial Counselor Needed No Factors/Needs No D/C Needs Identified Pt/Rep Participated In Discharge Plan Yes Patient/Family Agress With Discharge Plan Yes Discharge Plan Comments TENTATIVE DISCHARGE PLAN IS FOR PATIENT TO RETURN HOME. DC Plan Status Initiated
[2020-06-11] MEDS ORDERED: PIPERACILLIN/TAZOBACTAM 2.25 GM VIAL IV ONE ×2 (12:52→21:29)
[2020-06-11] MEDS ORDERED: PIPER/TAZO 2.25GM/D5W PREMIX 50 ML IV SCH (13:00)
[2020-06-11] MEDS ORDERED: PIPERACILLIN/TAZOBACTAM 3.375 GM in DEXTROSE 5% 50 ML IV SCH (13:00)
--- NOTE | 2020-06-11 13:15 | NUR ---
Spoke with Shannan, ruth ann nolasco states uncle is decision maker for pt and for 's to reach out to him.
[2020-06-11] MEDS: PIPERACILLIN/TAZOBACTAM 2.25 GM in DEXTROSE 5% 50 ML IV SCH ×2 (13:20→21:30)
--- NOTE | 2020-06-11 13:26 | NUR ---
Paged Dr. John for UA ordered last night clean catch. Pt is A&OX1, recommended a gerber or straight catheter.
--- NOTE | 2020-06-11 13:46 | NUR ---
Dr. John ordered gerber to be inserted and UA collected.
--- NOTE | 2020-06-11 14:07 | NUR ---
16F gerber inserted per Dr. John, pt tolerated procedure well.
--- NOTE | 2020-06-11 14:07 | NUR ---
Spoke to nuclear medicine regarding Hida scan. Keep patient NPO and no opiates until scan is completed.
--- NOTE | 2020-06-11 14:25 | NUR ---
Collected UA specimen, walked to lab.
--- NOTE | 2020-06-11 14:30 | NUR ---
Spoke with nuclear medicine regarding Hida scan, reported pt is NPO and no opiates since admission. ETA 3-4.5hours.
[2020-06-11 16:01] LABS: APPEARANCE,URINE CLEAR (CLEAR); BILIRUBIN,URINE NEGATIVE (NEGATIVE); BLOOD, URINE NEGATIVE (NEGATIVE); COLOR,URINE YELLOW (YELLOW); LEUKOCYTE ESTERASE ,URINE NEGATIVE (NEGATIVE); NITRITE, URINE NEGATIVE (NEGATIVE); PH,URINE 6.5 (5.0-9.0); UGLUCOSE NEGATIVE (NEGATIVE)
--- NOTE | 2020-06-11 16:39 | NUR ---
MRSA swab collected and walked to lab.
[2020-06-11] MEDS: ursodioL 300 MG CAP PO SCH (17:00)
--- NOTE | 2020-06-11 18:30 | NUR ---
Pt changed to clean gown, repoitioned for comfort, VSS, will continue to monitor.
--- NOTE | 2020-06-11 18:56 | NUR ---
Pt taken to HIDA scan, accompanied with EMT.
--- NOTE | 2020-06-11 19:21 | NUR ---
Gave report to LESLEY Lutz, transfered all care at this time.
--- NOTE | 2020-06-11 19:25 | NUR ---
RECEIVED REPORT FROM JENNA SUTTON
--- NOTE | 2020-06-11 20:05 | NUR ---
PT IN NUCLEAR MEDICINE RECEIVING A HIDA SCAN, CALLED BY TECH TO BRING OVER 2MG MS IVP FOR PROCUDURE.
--- NOTE | 2020-06-11 20:52 | NUR ---
SPOKE TO GRAND DAUGHTER CYNTHIA, SHE WAS REQUESTING AN UPDATE. ADVISED PT IS STILL IN PROCESS OF RECEIVING THE HIDA SCAN. SHE WOULD LIKE HER UNCLE, MARE STOCKTON TO BE CONTACTED AT [phone]
--- NOTE | 2020-06-11 21:18 | NUR ---
PT BACK FROM NUCLEAR MED FROM HER HIDA SCAN. DIAPER CHANGED, PT HAD BM. PT RESPOSITIONED FOR COMFORT
--- NOTE | 2020-06-11 22:25 | NUR ---
PT ARRIVED FROM ER TO UNIT VIA GURNEY. REPORT RECEIVED FROM ER NURSE PRIOR. PT DROWSY, BUT AROUSABLE TO VOICE AND TOUCH. PT AAOX1, CONFUSED. ABDOMEN SOFT AND NON-TENDER, ACTIVE BOWEL SOUNDS NOTED. SKIN IS WARM, DRY, AND INTACT. PT WITH IV ACCESS ON RIGH AC G20 PATENT AND INTACT, IVF INFUSING WELL. PT DENIES ANY PAIN OR DISCOMFORT. PT KEPT COMFORTABLE. VS TAKEN, STABLE. MRSA SWAB TAKEN. PT ORIENTED TO ROOM. FALL RISK PRECAUTIONS OBSERVED. CALL LIGHT WITHIN REACH, WILL CONTINUE TO MONITOR. Addendum: 06/12/20 at 0310 by Rojas Soriano RN FC IN PLACE, DRAINING WELL.
[2020-06-11 22:30] VITALS: BP 99/51
--- NOTE | 2020-06-11 22:47 | NUR ---
Patient will be admitted to care of DR THOMPSON. Admited to MED/SURG. Will go to room 125A. Belongings list completed. Report to RODOLFO SUTTON.
--- NOTE | 2020-06-11 22:48 | NUR ---
PASSED ON INFO TO RODOLFO REGARDING UPDATING SON MARE REGARDING POSSIBLE SURGERY
--- NOTE | 2020-06-12 00:18 | NUR ---
PT ASLEEP. NO S/SX OF DISTRESS NOTED. PT KEPT COMFORTABLE. SAFETY MEASURES IN PLACE. CALL LIGHT WITHIN REACH. WILL CONTINUE TO MONITOR.
--- NOTE | 2020-06-12 02:16 | NUR ---
PT ASLEEP. VISIBLE CHEST RISE AND FALL NOTED. PT NOT IN DISTRESS. NO S/SX OF PAIN AND DISCOMFORT NOTED. PT KEPT COMFORTABLE. SAFETY MEASURES IN PLACE. CALL LIGHT WITHIN REACH. WILL CONTINUE TO MONITOR.
[2020-06-12 04:00] VITALS: BP 124/34
--- NOTE | 2020-06-12 04:19 | NUR ---
VS STABLE. PT IN BED RESTING. PT CONFUSED, REORIENTED. NO S/SX OF PAIN, DISCOMFORT, OR DISTRESS NOTED. PT KEPT COMFORTABLE. SAFETY MEASURES IN PLACE. CALL LIGHT WITHIN REACH. WILL CONTINUE TO MONITOR.
--- NOTE | 2020-06-12 05:06 | NUR ---
PERINEAL CARE DONE WITH GSE MECHANIC. PT TOLERATED CARE PROVIDED. WILL CONTINUE TO MONITOR.
[2020-06-12] MEDS ORDERED: PIPERACILLIN/TAZOBACTAM 2.25 GM VIAL IV ONE (05:41)
[2020-06-12] MEDS: NACL 0.9% 1,000 ML IV SCH (05:41)
[2020-06-12] MEDS: PIPERACILLIN/TAZOBACTAM 2.25 GM in DEXTROSE 5% 50 ML IV SCH ×2 (05:42→12:41)
[2020-06-12 06:56] LABS: ALBUMIN 2.7 g/dL (3.4-5.0); ANION GAP 10.8 (8-16); ASPARTATE AMINOTRANSFERASE 27 U/L (15-37); CARBON DIOXIDE 25.8 mmol/L (21-32); CHLORIDE 110 mmol/L (98-107); CREATININE 1.2 mg/dL (0.6-1.3); GLUCOSE 98 mg/dL (74-106); POTASSIUM 4.6 mmol/L (3.5-5.1); SODIUM SERUM 142 mmol/L (136-145); TOTAL BILIRUBIN 1.6 mg/dL (0.0-1.0); UREA NITROGEN, BLOOD 21 mg/dL (7-18)
[2020-06-12 07:07] LABS: BASOPHILS # (AUTO) 0.1 K/uL (0.00-0.22); BASOPHILS % (AUTO) 0.6 % (0.0-2.0); EOSINOPHILS # (AUTO) 0.2 K/uL (0-0.4); EOSINOPHILS % (AUTO) 1.6 % (0.0-4.0); HEMOGLOBIN 11.8 g/dL (12.0-16.0); LYMPHOCYTES # (AUTO) 2.7 K/uL (2.5-16.5); LYMPHOCYTES % (AUTO) 21.2 % (20.5-51.1); MEAN CORPUSCULAR HEMOGLOBIN 32 pg (27-31); MEAN CORPUSCULAR HGB CONC 33 g/dL (33-37); MEAN CORPUSCULAR VOLUME 95.7 fL (80-94); MONOCYTES # (AUTO) 0.9 K/uL (0.8-1.0); MONOCYTES % (AUTO) 6.8 % (1.7-9.3); NEUTROPHILS # (AUTO) 8.9 K/uL (1.8-7.7); NEUTROPHILS % (AUTO) 69.8 % (42.2-75.2); PLATELET COUNT (AUTO) 235 K/uL (140-450); RED BLOOD CELL COUNT(AUTO) 3.76 MIL/uL (4.20-5.40); WHITE BLOOD COUNT (AUTO) 12.8 K/uL (4.8-10.8)
--- NOTE | 2020-06-12 07:31 | NUR ---
ENDORSED TO DAY SHIFT NURSE FOR CONTINUITY OF CARE
--- NOTE | 2020-06-12 07:32 | NUR ---
REPORT RECEIVED FROM HUMAN RESOURCES RECRUITER NURSE AT BEDSIDE FOR CONTINUITY OF CARE. PT SLEEPING, BUT AROUSABLE TO VOICE AND TOUCH. PT AAOX1, CONFUSED, [place] SPEAKING. ABDOMEN SOFT AND NON-TENDER, ACTIVE BOWEL SOUNDS NOTED. SKIN IS WARM, DRY, AND INTACT. PT WITH IV ACCESS ON RIGH AC G20 PATENT AND INTACT, IVF INFUSING WELL. PT DENIES ANY PAIN OR DISCOMFORT. PT KEPT COMFORTABLE. FALL RISK PRECAUTIONS OBSERVED. BED IN LOWEST POSITION WITH BRAKES ON. CALL LIGHT WITHIN REACH, WILL CONTINUE TO MONITOR.
[2020-06-12 08:00] VITALS: BP 156/59
[2020-06-12] MEDS: ursodioL 300 MG CAP PO SCH (08:00)
[2020-06-12] MEDS: ENOXAPARIN 30 MG/0.3 ML SYR SUBQ SCH (11:06)
--- NOTE | 2020-06-12 11:06 | NUR ---
SCHEDULED MEDICATION GIVEN. PATIENT TOLERATING IT WELL, NO COMPLAINTS AT THIS TIME. WILL CONTINUE TO MONITOR PATIENT.
--- NOTE | 2020-06-12 13:00 | NUR ---
DR THOMPSON ON THE FLOOR ROUNDING. INFORMED HIM OF PATIENT'S SON MARE AND GRANDDAUGHTER'S WISH TO TALK TO HIM. CALLED THEIR CELL PHONE NUMBERS, MARE [phone], GRANDDAUGHTER ANJEL [phone]. NO ANSWER AFTER REPEATED ATTEMPTS. PATIENT RESTING IN BED, SLEEPING COMFORTABLY. NO COMPLAINTS AT THIS TIME. WILL CONTINUE TO MONITOR PATIENT.
[2020-06-12] MEDS ORDERED: URSO300C8 PO (13:41)
--- NOTE | 2020-06-12 14:02 | NUR ---
CALLED MARGARITA GARVEY AGAIN. HE ANSWERED. GAVE PHONE TO DR. THOMPSON. THEY ARE DISCUSSING PATIENT'S CONDITION, STATUS, AND DISCHARGE. WILL WAIT FOR NEW ORDERS. WILL CONTINUE TO MONITOR PATIENT.
[2020-06-12] MEDS ORDERED: AMOX-999 PO (14:20)
--- NOTE | 2020-06-12 14:30 | NUR ---
PATIENT REMOVED IV. IV CANNULA INTACT, MINIMAL BLEEDING NOTED. PATIENT IS TO BE DISCHARGED HOME WITH FAMILY. DR. THOMPSON SPOKE TO SON MARE AND VERBALIZED DISCHARGE SUMMARY. MARE VERBALIZED UNDERSTANDING.
--- NOTE | 2020-06-12 16:05 | NUR ---
AG CATHETER REMOVED. 300 ML OF YELLOW URINE NOTED. PATIENT TOLERATED IT WELL. PATIENT WILL NOW CHANGE INTO OWN CLOTHING TO BE DISCHARGED HOME WITH FAMILY MEMBERS.
--- NOTE | 2020-06-12 16:13 | NUR ---
06/12/2020 RD INITIAL ASSESSMENT COMPLETED PLEASE REFER TO NUTRITION ASSESSMENT UNDER CARE ACTIVITY FOR ESTIMATED NUTRITIONAL NEEDS. ADVANCE DIET TO REGULAR ONCE MEDICALLY APPROPRIATE MAY CONSIDER ENSURE BID ONCE DIET ADVANCED IF PO INTAKE IS LOW RD TO FOLLOW-UP IN 2-3 DAYS PATIENT IS HIGH RISK. PAN CAMPOS, RD
--- NOTE | 2020-06-12 17:00 | NUR ---
PATIENT DISCHARGED HOME WITH GRANDDAUGHTER. PATIENT IN STABLE CONDITION. REITERATED PATIENT'S PRESCRIBED MEDICATIONS AND HOW PATIENT SHOULD TAKE THEM ORDERED. GRANDDAUGHTER ANJEL VERBALIZED UNDERSTANDING. TOOK ALL HER BELONGINGS WITH HER.
== END 2020-06-12 17:00 | disposition home or self-care (01) | DRG 446 ==
LOC: MED → EEVIPCON 03:59 → MMU 03:59
PROVIDERS: ADMIT Hospitalist; ATTEND Hospitalist
DX: K81.2 Acute cholecystitis with chronic cholecystitis (principal); F03.90 Unspecified dementia, unspecified severity, without behavioral disturbance, psychotic disturbance, mood disturbance, and anxiety; I50.9 Heart failure, unspecified; I48.91 Unspecified atrial fibrillation; Z79.01 Long term (current) use of anticoagulants; Z96.653 Presence of artificial knee joint, bilateral; E78.5 Hyperlipidemia, unspecified; M19.90 Unspecified osteoarthritis, unspecified site; M81.0 Age-related osteoporosis without current pathological fracture; Z20.828 Contact with and (suspected) exposure to other viral communicable diseases
CPT/HCPCS: 36415; 78445; 80053; 81003; 83605; 83690; 83735; 85025; 87040; 87081; 96365; 96375; 99285; J1650; J2060; J2270; J2405; J2543; J7060